=== PATIENT | female | born 1970 | race Asian ===

== ENCOUNTER → 2020-10-29 10:30 | Outpatient (CLI) | payer OTHER, SELFPAY ==
--- NOTE | ~2020-10-29 | XR_ITS ---
EXAMINATION: XR lumbar spine 2-3V DATE: 10/29/2020 10:56 INDICATION: Low back pain TECHNIQUE: Anteroposterior and lateral views of the lumbar spine, and cone-down lateral view of the l umbosacral junction were obtained. COMPARISON: None. FINDINGS: There is no fracture, dislocation, or subluxation. Mild loss of intervertebral disc space h eight is seen at L4-5 and L5-S1. The vertebral body heights are maintained. Small degenerative osteop hytes project from the anterior endplates of multiple vertebral bodies. There is mild facet osteoarth ritis of the lower lumbar spine. IMPRESSION: 1. Mild lumbar spondylosis without acute findings. Reviewed, dictated and finalized at location B.
== END ==
PROVIDERS: PCP Family Medicine; Visit Provider Nurse Practitioner Family
DX: M47.896 Other spondylosis, lumbar region (principal)
CPT/HCPCS: 72100

== ENCOUNTER → 2020-11-14 16:27 | Outpatient (CLI) | payer OTHER, SELFPAY ==
--- NOTE | ~2020-11-14 | MM_ITS ---
EXAMINATION: MM scrn calvin implant BI w bryant HISTORY: Screening mammogram TECHNIQUE: Craniocaudal and mediolateral oblique 3-D tomosynthesis images with implant displacement a nd synthetic 2-D images were generated. Craniocaudal and mediolateral oblique views of the breasts wi thout implant displacement were obtained using full field digital mammography. CAD analysis was submi tted and interpreted. COMPARISON: No prior mammogram is available for comparison at this institution. BREAST PARENCHYMAL COMPOSITION: The breasts are extremely dense, which lowers the sensitivity of mamm ography. FINDINGS: There is no evidence of suspicious mass, calcification, or architectural distortion to sugg est malignancy in either breast. There has been no suspicious interval change. IMPRESSION: 1. No mammographic evidence of malignancy. 2. Recommend routine screening mammography in one year. BI-RADS Category 1: Negative Reviewed, dictated and finalized at location A.
== END ==
PROVIDERS: Visit Provider Obstetrics & Gynecology
DX: Z12.31 Encounter for screening mammogram for malignant neoplasm of breast (principal)
CPT/HCPCS: 77063; 77067

== ENCOUNTER 2021-06-20 00:22 | Day surgery (SDC) | payer OTHER, SELFPAY ==
[2021-06-13 10:25] VITALS: BMI 23.6
[2021-06-20 07:35] VITALS: BP 122/88; PULSE 79; RESP 18; TEMP 36.4; O2SAT 100
[2021-06-20] MEDS: LACTATED RINGERS 1,000 ML 150 ML IV CONT (07:40)
--- NOTE | 2021-06-20 08:22 | P.PNAN_ITS ---
Anes - Initial Pre Proc Eval Procedure: Operation Date: 06/20/21 08:45 Proposed Procedures p Screening Colonoscopy - Jerad Scott MD Date/Time: 06/20/21 08:22 Surgeon: Jerad Scott MD Pre Op Diagnosis: neoplasm screening Patient Data Age: 51 Gender: F Height: 1.57 m Weight: 58.5 kg Last Vital Signs Temp 97.6 F 06/20/21 07:35 Pulse 79 06/20/21 07:35 Resp 18 06/20/21 07:35 BP 122/88 06/20/21 07:35 Pulse Ox 100 06/20/21 07:35 Allergies Allergy/AdvReac Type Severity Reaction Status Date / Time No Known Allergies Allergy Verified 06/20/21 07:34 Home Medications Medication Instructions Recorded Confirmed Type No Home Medications 03/12/20 06/13/21 History Patient hx anesthesia problems: none Family hx anesthesia problems: none Results Review: All pre-operative results and documents have been reviewed as part of the pre-operative evaluation. [facility] Past Medical History Medical History (Updated 04/09/21 @ 15:23 by Amna Guzman) Encounter for screening colonoscopy Surgical History Surgical History History of breast surgery History of section Family History Family History Father No problems noted. Mother Asthma Hypertension Social History Social History Smoking status: Never smoker Alcohol intake: current Drinks per week: 5 Alcohol use details: WEEK Substance use: never Substance use type: does not use Living arrangements: with family Spiritual care concerns: No Anes - Eval Final PreProcedure Day of Procedure 06/20/21 08:22 Patient weight: normal Heart: regular rate and rhythm Lungs: clear to auscultation Airway: Mallampati scale class II Neurological: alert and oriented Last oral intake: >/= 8 hours ASA classification: I Emergent: no Anesthetic plan: proceed Anesthesia type and monitoring: general GIVS and standard monitoring Results Review: All pre-operative results and documents have been reviewed as part of the pre-operative evaluation. Informed Consent: The patient's anesthetic plan and its attendant risks and benefits were discussed with the patient/family/POA. Questions were solicited and answers provided to the satisfaction of the patient/family/POA.
--- NOTE | 2021-06-20 08:31 | PM.HPGS ---
History of Present Illness History of Present Illness Consent: Risks, benefits, and alternatives have been discussed and questions answered. Patient agrees to proceed with procedure. Chief complaint: neoplasm screening Narrative: Jessica Saenz is a 51 year old female here for first screening colonoscopy Review of Systems Constitutional: Constitutional: Denies headache(s) and Denies weakness Eyes: Eyes: Denies blurry vision ENT: Reports Normal hearing present, Denies headache(s) and Denies neck pain Cardiovascular: Cardiovascular: Denies chest pain and Denies dyspnea Respiratory: Respiratory: Denies dyspnea Gastrointestinal: Gastrointestinal: Reports no additional gastrointestinal complaints Genitourinary: Genitourinary: Denies dysuria Musculoskeletal: Musculoskeletal: Denies neck pain Integumentary/Breasts: Skin/Breast: Denies dry skin Neurologic: Reports Normal hearing present, Denies headache(s) and Denies weakness Psychiatric: Psychiatric: Denies anxiety Endocrine: Endocrine: Denies change in body appearance Hematologic/Lymphatic: Hematologic/Lymphatic: Denies easy bleeding Allergic/Immunologic: Allergic/Immunologic: Denies urticaria PMFSH Past Medical History Medical History (Updated 04/09/21 @ 15:23 by Amna Guzman) Encounter for screening colonoscopy Surgical History Surgical History History of breast surgery History of section Family History Family History Father No problems noted. Mother Asthma Hypertension Social History Social History Smoking status: Never smoker Alcohol intake: current Drinks per week: 5 Alcohol use details: WEEK Substance use: never Substance use type: does not use Living arrangements: with family Spiritual care concerns: No Meds Home Medications and Allergies Home Medications Medication Instructions Recorded Confirmed Type No Home Medications 03/12/20 06/13/21 History Allergies Allergy/AdvReac Type Severity Reaction Status Date / Time No Known Allergies Allergy Verified 06/20/21 07:34 Vital Signs Vital Signs - 24 hr 06/20/21 07:35 Temperature 97.6 F Pulse Rate 79 Respiratory Rate 18 Blood Pressure 122/88 Pulse Oximetry 100 Exam Const: General: comfortable and no acute distress HENMT: General nose exam: Normal nares present Eyes: General: appearance normal, both eyes and all related structures Neck: Neck: no JVD Resp: Auscultation: clear to auscultation bilaterally Cardio: Rate: regular rate Rhythm: regular rhythm GI: Inspection: non-distended GI Palp: Yes Soft to palpation Skin: General skin exam: normal color Neuro: General: gait normal Speech: normal speech Extrem: General: normal to inspection Psych: Mental Status: mental status grossly normal Assessment and Plan Assessment and plan (1) Encounter for screening colonoscopy: Code(s): Z12.11 - Encounter for screening for malignant neoplasm of colon Status: Acute Assessment and Plan: colonoscopy
[2021-06-20 08:57] VITALS: BP 103/81; PULSE 80; RESP 17; O2SAT 97
[2021-06-20 09:07] VITALS: BP 108/80; PULSE 67; RESP 17; O2SAT 100
[2021-06-20 09:17] VITALS: BP 114/84; PULSE 61; RESP 18; O2SAT 100
== END 2021-06-20 09:30 | disposition home or self-care (01) ==
PROVIDERS: PCP Family Medicine; Visit Provider Internal Medicine Gastroenterology
PROC: 0DJD8ZZ Inspection of Lower Intestinal Tract, Via Natural or Artificial Opening Endoscopic (ICD-10-PCS; CPT 45378; principal; 2021-06-20 08:45)
DX: Z12.11 Encounter for screening for malignant neoplasm of colon (principal); K64.8 Other hemorrhoids
CPT/HCPCS: 45378; J2405; J7120

== ENCOUNTER → 2021-11-28 15:08 | Outpatient (CLI) | payer OTHER, SELFPAY ==
--- NOTE | ~2021-11-28 | XR_ITS ---
EXAMINATION: XR lumbar spine min 4V DATE: 11/28/2021 15:45 INDICATION: Chronic low back pain TECHNIQUE: Anteroposterior, lateral, and bilateral oblique views of the lumbar spine, and cone-down l ateral view of the lumbosacral junction were obtained. COMPARISON: 10/29/2020 FINDINGS: Bone alignment is normal. There is no fracture. There is mild loss of intervertebral disc s pace height and L5-S1. Small degenerative osteophytes project from the anterior endplates of multiple vertebral bodies. There is moderate facet osteoarthritis of the lower lumbar spine. IMPRESSION: 1. Mild lumbar spondylosis without acute findings or significant interval change. Reviewed, dictated and finalized at location A. IMPRESSION: 1. Mild lumbar spondylosis without acute findings or significant interval phillips iman
--- NOTE | ~2021-11-28 | MM_ITS ---
EXAMINATION: MM scrn calvin implant BI w bryant HISTORY: Screening mammogram TECHNIQUE: Craniocaudal and mediolateral oblique 3-D tomosynthesis images with implant displacement a nd synthetic 2-D images were generated. Craniocaudal and mediolateral oblique views of the breasts wi thout implant displacement were obtained using full field digital mammography. CAD analysis was submi tted and interpreted. COMPARISON: 11/14/2020 bilateral implant screening mammogram BREAST PARENCHYMAL COMPOSITION: The breasts are extremely dense, which lowers the sensitivity of mamm ography. FINDINGS: Status post bilateral augmentation mammoplasty. There is no evidence of suspicious mass, ca lcification, or architectural distortion to suggest malignancy in either breast. There has been no dailey spicious interval change. IMPRESSION: 1. No mammographic evidence of malignancy. 2. Recommend routine screening mammography in one year. BI-RADS Category 1: Negative Reviewed, dictated and finalized at location A.
== END ==
PROVIDERS: PCP Obstetrics & Gynecology; Visit Provider Obstetrics & Gynecology
DX: Z12.31 Encounter for screening mammogram for malignant neoplasm of breast (principal); M54.50 Low back pain, unspecified; M47.816 Spondylosis without myelopathy or radiculopathy, lumbar region
CPT/HCPCS: 72110; 77063; 77067

== ENCOUNTER → 2023-03-05 08:04 | Outpatient (CLI) | payer OTHER, SELFPAY ==
--- NOTE | ~2023-03-05 | MM_ITS ---
EXAMINATION: MM scrn calvin implant BI w bryant HISTORY: Screening mammogram TECHNIQUE: Craniocaudal and mediolateral oblique 3-D tomosynthesis images with implant displacement a nd synthetic 2-D images were generated. Craniocaudal and mediolateral oblique views of the breasts wi thout implant displacement were obtained using full field digital mammography. CAD analysis was submi tted and interpreted. COMPARISON: 11/28/2021, 11/14/2020 bilateral implant screening mammogram examinations BREAST PARENCHYMAL COMPOSITION: The breasts are extremely dense, which lowers the sensitivity of mamm ography. FINDINGS: Status post bilateral augmentation mammoplasty. There is no evidence of suspicious mass, ca lcification, or architectural distortion to suggest malignancy in either breast. There has been no dailey spicious interval change. IMPRESSION: 1. No mammographic evidence of malignancy. 2. Recommend routine screening mammography in one year. BI-RADS Category 1: Negative Reviewed, dictated and finalized at location A. [place] [employer]
== END ==
PROVIDERS: PCP Obstetrics & Gynecology; Visit Provider Obstetrics & Gynecology
DX: Z12.31 Encounter for screening mammogram for malignant neoplasm of breast (principal)
CPT/HCPCS: 77063; 77067

== ENCOUNTER 2023-06-07 18:05 | Emergency (ER) | payer OTHER, SELFPAY ==
[2023-06-07 18:27] VITALS: BP 140/90; PULSE 55; RESP 16; TEMP 36.5; O2SAT 99
--- NOTE | 2023-06-07 18:33 | ECG_ITS ---
Measurements Intervals [place] Rate: 56 P: 51 OR: 180 QRS: 11 QRSD: 92 T: 36 QT: 433 QTc: 421 Interpretive Statements SINUS BRADYCARDIA OTHERWISE UNREMARKABLE ELECTROCARDIOGRAM Electronically Signed On 06-07-2023 18:43:09 CLOUD SECURITY ARCHITECT by Larry Green M.D.
--- NOTE | 2023-06-07 18:45 | ED.CHESTPAIN ---
HPI - Chest Pain General Chief Complaint: Chest Pain Stated Complaint: Chest Pain;Arm Numb Time Seen by Provider: 06/07/23 18:20 Source: patient and RN notes reviewed Mode of arrival: ambulatory Limitations: no limitations History of Present Illness HPI narrative: Patient presents today complaining of right arm numbness and weakness, midsternal chest tightness, nausea. Symptoms began approximately 4 hours prior to arrival. She also reports right temporal headache that started at 10:00 a.m.. Denies shortness of breath, dizziness, lightheadedness, vision changes, vomiting. She currently rates her headache 09/19. She took an 81 mg aspirin just prior to arrival. Denies any cardiac or pulmonary history. Related Data Home Medications Medication Instructions Recorded Confirmed No Home Medications 03/12/20 06/07/23 Allergies Allergy/AdvReac Type Severity Reaction Status Date / Time No Known Allergies Allergy Verified 06/07/23 18:34 Review of Systems Review of Systems: CONSTITUTIONAL: Denies body aches, fever, chills, or sweats. EYES: Denies visual changes, redness, or discharge. ENT: Denies rhinorrhea, congestion, sore throat, or otalgia. CARDIOVASCULAR: Denies palpitations, or edema.+ chest tightness RESPIRATORY: Denies cough or dyspnea. GASTROINTESTINAL: Denies abdominal pain, vomiting, or diarrhea.+ nausea GENITOURINARY: Denies dysuria or hematuria. SKIN: Denies rash, itching, or wounds. MUSCULOSKELETAL: Denies back pain, joint pain, or myalgia. NEUROLOGIC: + headache, right arm numbness and weakness PSYCH: Denies depression or anxiety. [facility] Past Medical History Medical History BMI 23.0-23.9, adult BMI 24.0-24.9, adult Encounter for screening colonoscopy Surgical History Surgical History History of breast surgery History of section Family History Family History Father No problems noted. Mother Asthma Hypertension Sibling No problems noted. 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 Please see nursing chart for further information. There is no relevant family history pertinent to the presenting complaint Exam Narrative: GENERAL: Well-appearing, well-nourished, and in no acute distress. HEAD: Normocephalic, atraumatic. EYES: EOMI. PERRL. No redness or drainage. Conjunctivae normal. ENT: Mucous membranes pink and moist. NECK: Normal AROM. CHEST: No respiratory distress. Clear to auscultation. HEART: Regular rate and rhythm. No murmur appreciated. Normal peripheral pulses. MUSCULOSKELETAL: No bony tenderness. EXTREMITIES: Normal range of motion. No edema. Hand hand decorator equal and strong. Dorsiflexion and plantar flexion equal and strong against resistance. SKIN: Warm, dry, no rash. Capillary refill normal. Normal skin turgor. NEURO: No focal deficits noted.. Alert an
== END 2023-06-07 18:41 | disposition short-term general hospital (02) ==
PROVIDERS: Emergency Provider Nurse Practitioner; PCP Family Medicine
DX: R20.0 Anesthesia of skin (principal); R20.2 Paresthesia of skin; R07.89 Other chest pain; R51.9 Headache, unspecified; Z79.82 Long term (current) use of aspirin
CPT/HCPCS: 93005; 99213; G0463

== ENCOUNTER 2023-06-07 18:59 | Emergency (ER) | payer OTHER, SELFPAY ==
[2023-06-07] VITALS (8 sets, daily range): BP systolic 152–176; BP diastolic 83–99; PULSE 56–64; RESP 14–19; TEMP 36.4; O2SAT 95–100
--- NOTE | ~2023-06-07 | XR_ITS ---
EXAMINATION: XR chest 2V Exam Date/Time: 06/07/2023 19:30 PHARMACY MANAGER HISTORY: chest tightness, WITH NAUSEA, HEADACHE AND RIGHT ARM Comparison: None. RESULT: Lines, tubes, and devices: Bilateral breast implants. Lungs and pleura: Clear. Cardiomediastinal silhouette: Normal. Other: No acute osseous or upper abdominal finding. IMPRESSION: No acute cardiopulmonary process. Reviewed, dictated and finalized at location K. MACY MANAGER
--- NOTE | 2023-06-07 19:22 | ECG_ITS ---
Measurements Intervals [place] Rate: 56 P: 54 [place]: 185 QRS: 19 QRSD: 86 T: 32 QT: 447 QTc: 433 Interpretive Statements SINUS BRADYCARDIA NONSPECIFIC ST & T-WAVE ABNORMALITY COMPARED TO ECG 06/07/2023 18:20:31 T-WAVE ABNORMALITY NOW PRESENT Electronically Signed On 06-08-2023 12:25:16 SECURITY SOLUTIONS ARCHITECT by Latoya Canas M.D.
[2023-06-07 19:43] LABS: Basophils Percent Auto 0.7 % (0.2-1.2); Eosinophils Absolute Auto 0.1 K/mm3 (0-0.3); Eosinophils Percent Auto 1.7 % (0-4.4); Hematocrit 44.2 % (37.0-47.0); Hemoglobin 14.5 g/dL (12.0-15.0); Immature Granulocyte Absolute 0.01 K/mm3 (0.00-0.031); Immature Granulocyte Percent A 0.2 % (0-0.5); Lymphocytes Absolute Auto 1.33 K/mm3 (0.9-3.2); Lymphocytes Percent Auto 23.2 % (18.3-44.2); Mean Corpuscular HGB Conc 32.8 g/dl (32-36); Mean Corpuscular Hemoglobin 30.3 pg (26-34); Mean Corpuscular Volume 92.5 fl (80-100); Mean Platelet Volume 10.1 fl (7.4-10.4); Monocytes Absolute Auto 0.4 K/mm3 (0.1-0.6); Monocytes Percent Auto 6.4 % (2.6-8.5); Neutrophils Absolute Auto 3.9 K/mm3 (1.3-6.7); Neutrophils Percent Auto 67.8 % (45.5-73.1); Platelet Count Result 279 k/mm3 (150-375); Red Blood Count 4.78 M/mm3 (4.2-5.4); Red Cell Distribution Width 12.3 % (11.5-14.5); White Blood Count 5.7 K/mm3 (4.5-10.0)
[2023-06-07 19:54] LABS: INR 0.9; Prothrombin Time 12.6 Seconds (11.1-14.7)
[2023-06-07 19:55] LABS: Partial Thromboplastin Time 29.5 SECONDS (22.3-36.8)
[2023-06-07 19:56] LABS: Alanine Aminotransferase 31 U/L (6-35); Albumin Level 4.8 g/dL (3.5-5.1); Alkaline Phosphatase 94 U/L (38-126); Anion Gap 8 mmol/L (8-16); Aspartate Amino Transferase 33 U/L (14-36); Bilirubin,Total 1.3 mg/dL (0.2-1.3); Blood Urea Nitrogen 11 mg/dL (7-17); Calcium 9.2 mg/dL (8.4-10.2); Carbon Dioxide 28 mmol/L (22-30); Chloride 102 mmol/L (98-107); Estimated CRCL calculation 63 ml/min; Estimated Glomerular Filt Rate > 60; Glucose 105 mg/dL (65-110); Lipase 54 U/L (23-300); Potassium 3.4 mmol/L (3.4-5.0); Sodium 138 mmol/L (137-145)
[2023-06-07 20:08] LABS: Troponin I < 0.012 ng/mL (0.000-0.034)
--- NOTE | 2023-06-07 22:12 | ED.GENADULT ---
[facility] - General Adult General Chief complaint: Unspecified Stated complaint: R arm numbness, chest tightness, nausea Time Seen by Provider: 06/07/23 21:30 Source: patient Mode of arrival: ambulatory Limitations: no limitations History of Present Illness [facility] narrative: This is a 53-year-old female who presents to the ED with chief complaint of right arm paresthesias beginning around 2:00 p.m. today. 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 Reports she subsequently started some headache and chest tightness. Reports the symptoms have resolved but the tingling is still present. Denies lower extremity symptoms, vision changes, facial droop, speech problems, vision change, neck pain, fevers, chills, seizure, syncope, lightheadedness. Related Data Home Medications Medication Instructions Recorded Confirmed No Home Medications 03/12/20 06/07/23 Allergies Allergy/AdvReac Type Severity Reaction Status Date / Time No Known Allergies Allergy Verified 06/07/23 18:34 Review of Systems Review of Systems: All systems as dictated in [facility] Past Medical History Medical History BMI 23.0-23.9, adult BMI 24.0-24.9, adult Encounter for screening colonoscopy Surgical History Surgical History History of breast surgery History of section Family History Family History Father No problems noted. Mother Asthma Hypertension Sibling No problems noted. 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 HEAD: Normocephalic, atraumatic. EYES: PERRLA and EOMI. Visual krishna intact ENT: Nares clear, no rhinorrhea or epistaxis. Mucous membranes moist. Oropharynx without tonsillar hypertrophy exudate or other lesions. NECK: Supple. No adenopathy or masses. CHEST: No respiratory distress. Clear to auscultation. No wheezes rales or rhonchi HEART: Regular rate and rhythm. No murmur heard. Normal peripheral pulses. ABDOMEN: Soft, nontender, nondistended, normal active bowel sounds. MSK: Normal range of motion. No edema. SKIN: Warm, dry, no rash. NEURO: Alert and oriented x3. No focal deficits. Cranial nerves 2-12 intact. negative pronator drift. Normal finger-nose and heel-diallo. Ambulatory without difficulty. PSYCH: Normal mood and affect. Course Vital Signs Vital signs: Vital Signs Temperature 97.5 F L 06/07/23 19:17 Pulse Rate 62 06/07/23 19:17 Respiratory Rate 14 06/07/23 19:17 Blood Pressure 152/99 H 06/07/23 19:17 Pulse Oximetry 100 06/07/23 19:17 Oxygen Delivery Room Air 06/07/23 19:17 Temperature 97.5 F L 06/07/23 19:17 Pulse Rate 56 L 06/07/23 21:45 Respiratory Rate 18 06/07/23 21:45 Blood Pressure 176/83 H 06/07/23 21:10 Pulse Oximetry 98 06/07/23 21:45 Oxygen Delivery Room Air 06/07/23 19:17 Medical Decision Making [facility] Narrati
== END 2023-06-07 22:37 | disposition home or self-care (01) ==
PROVIDERS: Emergency Medicine; Emergency Provider Physician Assistant; PCP Family Medicine
DX: R20.2 Paresthesia of skin (principal)
CPT/HCPCS: 36415; 71046; 80053; 83690; 84484; 85025; 85610; 85730; 93005; 99284

== ENCOUNTER 2023-10-22 14:29 | Emergency (ER) | payer OTHER, SELFPAY ==
[2023-10-22 14:37] VITALS: BP 114/80; PULSE 70; RESP 16; TEMP 37.3; O2SAT 99
--- NOTE | 2023-10-22 14:43 | ED.EAR ---
HPI - Ear Problem General Chief complaint: Ear Stated complaint: Ear Pain Source: patient Mode of arrival: ambulatory Limitations: no limitations History of Present Illness HPI Narrative: 53-year-old female presented for complaint of left ear pain for about 2 weeks. Reports swallowing causes increased pain to the ear. Rates pain 10. Endorses chronic seasonal allergies, for which she does not take any medication. Denies ear drainage, tinnitus, dizziness, nausea, vomiting, fevers or chills. MD Complaint: ear pain Related Data Home Medications Medication Instructions Recorded Confirmed No Home Medications 03/12/20 10/22/23 Allergies Allergy/AdvReac Type Severity Reaction Status Date / Time No Known Allergies Allergy Verified 10/22/23 14:43 Review of Systems Review of Systems: CONSTITUTIONAL: Denies malaise, chills, or fever. EYES: Denies visual changes, redness, or discharge. ENT: Denies rhinorrhea, congestion, sinus pain, and sore throat. Reports ear pain CARDIOVASCULAR: Denies chest pain, palpitations, or edema. RESPIRATORY: Denies cough or dyspnea. GASTROINTESTINAL: Denies abdominal pain, nausea, vomiting, diarrhea SKIN: Denies rash or itching. MUSCULOSKELETAL: Denies myalgia. NEUROLOGIC: Denies headache. All systems reviewed & are unremarkable except as noted in HPI and below PMFSH Past Medical History Medical History BMI 23.0-23.9, adult BMI 24.0-24.9, adult Encounter for screening colonoscopy Surgical History Surgical History History of breast surgery History of section Family History Family History Father No problems noted. Mother Asthma Hypertension Sibling No problems noted. 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 There is no relevant family history pertinent to the presenting complaint Exam Narrative: GENERAL: Well-appearing EYES: PERRLA, conjunctivae clear ENT: Nares clear. Mucous membranes moist. TMs pearly perkins with normal light reflex bilaterally, scant clear effusion left; no tragal tenderness. Oropharynx not erythematous without lesions. Tonsils not enlarged and without exudate, no drooling, no hoarseness, no trismus, uvula midline. NECK: Supple. No lymphadenopathy CHEST: Clear to auscultation, breath sounds equal. HEART: Regular rate and rhythm. No murmur heard. SKIN: Warm, dry, no rash. NEURO: Alert and oriented x3. PSYCH: Normal mood and affect Course Course Emergency Course: Patient is aware of diagnosis, understands and agrees to treatment plan. Anticipatory guidance given. Patient agrees to follow-up as directed and is aware of reasons to seek care at the emergency department. Portions of this record may have been created with voice recognition software Level of Care: Express Care Visit Vital Signs Vital signs: Vital Signs Temperature 99.2 F 10/22/23 14:37 Pulse Rate 70 10/22/23 1
== END 2023-10-22 15:00 | disposition home or self-care (01) ==
PROVIDERS: Emergency Provider Nurse Practitioner Family; PCP Family Medicine
DX: H92.02 Otalgia, left ear (principal)
CPT/HCPCS: 99211; G0463

== ENCOUNTER → 2024-04-08 14:56 | Emergency (ER) | payer OTHER, SELFPAY | END | disposition left against medical advice (07) | PROVIDERS: Emergency Provider Nurse Practitioner; PCP Family Medicine | DX: Z53.21 Procedure and treatment not carried out due to patient leaving prior to being seen by health care provider (principal) | CPT/HCPCS: 99199 ==

== ENCOUNTER 2024-08-22 08:01 | Emergency (ER) | payer OTHER, SELFPAY ==
--- NOTE | ~2024-08-22 | XR_ITS ---
XR foot RT min 3V Ordering provider: Noah Connor APRN History: . fall Wednesday, pain and swelling right foot . Comparison: None. FINDINGS: BONES: No acute fracture or dislocation. JOINT SPACES: Narrowing of the proximal and distal interphalangeal joints.. No tarsal coalition. SOFT TISSUES: Normal. Calcaneal spur. IMPRESSION: No acute osseous abnormality of the right foot. Reviewed, dictated and finalized at location A.
--- NOTE | ~2024-08-22 | XR_ITS ---
XR ankle RT min 3V Ordering provider: Noah Connor APRN History: . fall Wednesday, pain and swelling right foot . Comparison: None. FINDINGS: BONES: No acute fracture or dislocation. JOINT SPACES: Normal. SOFT TISSUES: Normal. IMPRESSION: No acute osseous abnormality of the right ankle. Reviewed, dictated and finalized at location A.
[2024-08-22 08:11] VITALS: BP 136/82; PULSE 62; RESP 16; TEMP 37; O2SAT 100
--- NOTE | 2024-08-22 08:23 | ED_ITS ---
HPI - Extremity Injury (Lower) General Chief Complaint: Extremity Injury, Lower Stated Complaint: Injured Right Foot Time Seen by Provider: 08/22/24 08:15 Source: patient and RN notes reviewed Mode of arrival: ambulatory Limitations: no limitations History of Present Illness HPI Narrative: 54-year-old female presents Express Care complaining of a right foot/ ankle injury 3 days ago. Patient states she missed a step while walking down stairs and fell proximally down to more steps. When she landed on the next step she hyperextended her right ankle and fell pain to the back of her ankle after the injury. Patient reports having difficulty bearing weight on her right ankle and stated it was difficult for her to get up after she fell to the pain. Patient reports having swelling around her right ankle. Patient denies any numbness or tingling to her right foot. patient also has abrasions to her right knee and right elbow however she has no pain, swelling, or deformity to her right knee are elbow. Patient denies any significant past medical history. Patient has been using ice to help with the swelling to her right ankle. Related Data Home Medications ?Medication ?Instructions ?Recorded ?Confirmed ?Last Taken ?Type No Home Medications 03/12/20 10/22/23 Unknown History Allergies Allergy/AdvReac Type Severity Reaction Status Date / Time No Known Allergies Allergy Verified 10/22/23 14:43 Review of Systems Review of Systems: CONSTITUTIONAL: Denies fever, chills, or sweats. EYES: Denies visual changes, redness, or discharge. ENT: Denies rhinorrhea, congestion, sore throat, or otalgia. CARDIOVASCULAR: Denies chest pain, palpitations, or edema. RESPIRATORY: Denies cough or dyspnea. GASTROINTESTINAL: Denies abdominal pain, nausea, vomiting, or diarrhea. GENITOURINARY: Denies dysuria or hematuria. SKIN: Denies rash or itching. Positive for abrasions MUSCULOSKELETAL: Denies back pain, joint pain, or myalgia. Positive for right ankle injury. NEUROLOGIC: Denies headache, numbness, or weakness. PSYCHIATRIC: Denies anxiety or depression. All other systems reviewed are negative, except as documented in HPI. COUNT INCLUDES THE [facility] Past Medical History Medical History BMI 24.0-24.9, adult BMI 23.0-23.9, adult Encounter for screening colonoscopy Surgical History Surgical History History of section History of breast surgery Family History Family History Father No problems noted. Mother Asthma Hypertension Sibling No problems noted. 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 There is no relevant family history pertinent to the patient complaint. Exam Narrative: GENERAL: This is a well-nourished, well-developed adult, in no apparent distress. They are non ill-appearing, nontoxic appearing. HEAD: normocephalic, atraumatic. EYES: Sclera clear/white. Conjunctiva normal. Vision is grossly intact. Extraocular movements intact. Pupils PERRLA EARS: External ears normal, NOSE: External nose normal THROAT: Mucous membranes moist NECK: normal range of motion CARDIOVASCULAR: Regular rate and rhythm RESPIRATORY: Respiratory rate normal, respiratory effort nonlabored, no respiratory distress SKIN: right elbow: abrasion present to the extensor surface of right elbow. No Erythema, swelling, or drainage. Right knee: abrasions present to the anterior surface of the right knee. No erythema, swelling, or drainage. NEURO: awake, alert, and oriented to person, place and time. There were no obvious focal neurologic abnormalities. EXTREMITIES: Right ankle: swelling ecchymosis surrounding the lateral and medial ankle. Decreased movement during Kelly's test compared to the left ankle. Patient is able to dorsiflex and plantar flex the right ankle. No bony tenderness. Tenderness to palpation to the Achilles tendon. Right Achilles tendon partially palpable and soft, tender compared to left Achilles that is palpable, firm, and nontender. Right foot: no obvious deformity, swelling, bruising, injury to right foot. No bony tenderness. Pedal pulse 2 +palpable. Patient is able to wiggle her toes. Normal sensation. Neurovascular status is intact distal to injury. Right knee: abrasions present, no obvious injury, swelling, tenderness, or deformity, normal range of motion without tenderness. Right elbow: abrasion present, no obvious injury, swelling, tenderness, or deformity. Normal range of motion without tenderness BACK: Nontender without deformity. Course Course Emergency Course: Portions of this record may have been created with voice recognition software Level of Care: Express Care Visit Vital Signs Vital signs: Vital Signs Temperature 98.6 F 08/22/24 08:11 Pulse Rate 62 08/22/24 08:11 Respiratory Rate 16 08/22/24 08:11 Blood Pressure 136/82 08/22/24 08:11 Pulse Oximetry 100 08/22/24 08:11 Temperature 98.6 F 08/22/24 08:11 Pulse Rate 62 08/22/24 08:11 Respiratory Rate 16 08/22/24 08:11 Blood Pressure 136/82 08/22/24 08:11 Pulse Oximetry 100 08/22/24 08:11 Reviewed Procedures Orthopedic Splinting/Casting Injury #1: Splinting/Casting Date: 08/22/24 Splinting/Casting Time: 09:20 Side: right Lower Extremity Injury Location: ankle Lower Extremity Immobilizer: posterior splint Splint: customized in ED OCL: short leg Pre-Procedure Neuro Vascular Exam: normal Post-Procedure Neuro Vascular Exam: normal Other Orthopedic Equipment: crutches Additional Comments: Patient tolerated procedure well. Patient has her own crutches. Crutch education was reinforced with patient. MDM - Extremity Injury (Lower) MDM Narrative Medical decision making narrative: X-ray revealed no acute fracture findings. Patient has decreased movement on the right ankle during her Kelly's test compared to the her left ankle. Patient is able to dorsiflex and plantar flex her ankle. There is tenderness to palpation throughout the patient's right Achilles tendon. The right Achilles does not feel fully intact upon examination comparing to the left Achilles. There is suspicion the patient injured her Achilles tendon. Patient placed in a short-leg posterior and was given a referral to orthopedist. Discussed physical exam findings. Advised supportive measures and signs/symptoms to go to the ER. Pt is appropriate for outpt treatment and f/u. Differential Diagnosis Differential diagnosis: Likely ankle sprain and strain, ankle fracture and other (Achilles tendon injury) Imaging Data Radiologist's impression: ITS Impressions Ankle X-Ray 08/22/24 08:59 IMPRESSION: No acute osseous abnormality of the right ankle. Foot X-Ray 08/22/24 09:00 IMPRESSION: No acute osseous abnormality of the right foot. Critical Care Time Critical Care Time Critical Care Time: No Discharge Plan Discharge Clinical Impression: Achilles tendon injury Patient Disposition: Home Condition: Stable Instructions: Achilles Tendon Rupture (ED) Additional Instructions: Your x-ray was negative for any acute fractures or acute findings to your right foot and ankle. It is likely you have injured your Achilles from your fall. You have been placed in the splint to your right ankle. Please keep the splint dry and covered when you take a shower. Keep the splint on at all times. Do not bear weight on your right ankle. Use the crutches as directed. Please follow- up with orthopedist for further evaluation and management in 3-5 days. If you develop any worsening symptoms, numbness, tingling, or any other concerns please go to the ER immediately. Patient Language: Brazilian Prescriptions: No Action No Home Medications Follow-up/Referrals: Kendrick Michaels MD [Primary Care Provider] - Temo Gunn MD [Physician] - (Achilles injury) Time of Disposition: 09:20
== END 2024-08-22 09:33 | disposition home or self-care (01) ==
PROVIDERS: PCP Family Medicine
DX: S86.001A Unspecified injury of right Achilles tendon, initial encounter (principal); W10.9XXA Fall (on) (from) unspecified stairs and steps, initial encounter
CPT/HCPCS: 29515; 73610; 73630; 99213; G0463

== ENCOUNTER 2024-08-25 07:44 | Outpatient (CLI) | payer OTHER, SELFPAY ==
--- NOTE | ~2024-08-25 | MR_ITS ---
EXAMINATION: MR ankle RT wo con DATE: 08/28/2024 09:50 INDICATION: Right Achilles tendon strain TECHNIQUE: Magnetic resonance imaging (MRI) of the right ankle was performed without intravenous cont rast. Sequences included sagittal, coronal, and axial proton-density weighted fast spin echo without and with fat saturation. COMPARISON: Radiographs dated 08/22/2024 FINDINGS: Medial ankle ligaments: Deep and superficial deltoid ligaments as well as the spring ligament are normal. Lateral ankle ligaments: The anterior and posterior inferior tibiofibular ligaments are normal. The anterior talofibular, calc aneofibular and posterior talofibular ligaments are normal. Tendons: Moderate Achilles tendinosis. There is a complete tear of the Achilles tendon approximately 6 cm prox imal to the calcaneal insertion with 0.5 cm proximal retraction. The peroneus longus and brevis tendo ns are normal. The tibialis anterior and extensor hallucis longus and extensor digitorum longus tendo ns are normal. The tibialis posterior, flexor digitorum longus and flexor hallucis longus tendons are normal. Plantar fascia: Plantar aponeurosis is normal. Bones/other: Mild marrow edema in the inferior head of the talus underlying the anterior facet of the subtalar rebecca nt which could be related to overlying chondromalacia. Joint spaces appear relatively preserved throu ghout. Otherwise normal marrow signal with no fracture or pathologic marrow replacing process. Fluid: Small fluid collection likely hematoma at the site of the Achilles tendon tear. There is subcutaneous edema at the medial and lateral ankle. No joint effusions or other abnormal fluid collections. IMPRESSION: 1. Moderate Achilles tendinosis with complete Achilles tendon tear 6 cm proximal to its insertion. Reviewed, dictated and finalized at location A. IMPRESSION: 1. Moderate Achilles tendinosis with complete Achilles tendon tear 6 cm proxima l to its insertion.
== END 2024-08-25 07:45 | disposition home or self-care (01) ==
PROVIDERS: PCP Orthopaedic Surgery; Visit Provider Orthopaedic Surgery
DX: S86.011D Strain of right Achilles tendon, subsequent encounter (principal); X58.XXXD Exposure to other specified factors, subsequent encounter
CPT/HCPCS: 73721

== ENCOUNTER 2024-09-01 00:53 | Day surgery (SDC) | payer OTHER, SELFPAY ==
[2024-08-29 09:26] VITALS: BMI 24.7
--- NOTE | 2024-08-29 09:33 | PC.NURSE ---
Report to the Outpatient Waiting Room, entrance under the green pavilion located off [facility], at time _1000_ on date _[id number]_. Planned Procedure Time: _1200_.? Time changes happen often and if your time is changed the preop area will call you the afternoon before. - You and your visitor will be asked to self-screen and do not enter if you have any COVID symptoms. Please call surgeon if you need to reschedule. - A mask is optional within the hospital at this time. Patients may have clear liquids (water, carbonated beverages, clear teas, apple juice) until 3 hours prior to surgery with a maximum of 20 ounces. - No food from midnight until time of surgery and no smoking, or chewing tobacco (or any form of nicotine). No chewing gum, candy or mints. Take only the following medications with a SIP of water on the morning of surgery: ___None DO NOT STOP ANY OF YOUR OTHER PRESCRIPTION MEDICATIONS PRIOR TO SURGERY EXCEPT THE FOLLOWING Hold all vitamins and supplements for 3 days per anesthesiologist. Medications to discontinue per physician Date to take last dose Please no make-up, nail swedish, hairspray, perfume, deodorant, or body powder the day of surgery.? No jewelry (including any body piercings) or valuables the day of surgery, leave them at home.? Please take a shower or bath the night before, or the morning of, surgery with an antibacterial soap.? Wear comfortable, loose fitting clothing.? - Jewelry must be removed prior to entering the operating room.? Rings and piercings that are not removed may be cut off. - The hospital will not accept responsibility for valuables.? - Please leave all valuables, including medications, at home the day of surgery. If you are going home after surgery, a licensed local city driver must drive you home.? - NO public transportation without another adult if you receive anesthesia. - We recommend that an adult stay with you for 24 hours following discharge. - We also recommend that you do not drive, make important decision, drink alcoholic beverages, or take any drugs that were not prescribed by your health care provider for at least 24 hours after your discharge time. Follow any additional instructions given to you from your surgeon. Telephone instructions given to ___Jessica__and asked if any additional questions and then verbalized understanding. Patient advised to call surgeon office or pre surgery nurse liaison [phone] if any additional questions.
[2024-09-01] VITALS (10 sets, daily range): BP systolic 91–125; BP diastolic 58–85; PULSE 50–69; RESP 14–20; TEMP 36.2–36.9; O2SAT 94–100; BMI 24.5
--- OUTSIDE RECORDS SUMMARY | 2024-09-01 00:59 | XMS_ITS | Clinical Summary ---
Author Organization [facility] C Address [address] [place] [address] Care Team Providers Care Clay Preparation Supervisor Name Role Phone Holly Conner NP Primary Care Provider [phone] Allergies No known active allergies Medications No known medications Active Problems Problem Noted Date Diagnosed Date Well woman exam 12/20/2023 Overview (12/20/2023): Lab: Pap:h/o abnl pap, last was normal Labs with pcp Gia:02/2022 Colonoscopy:2021 BMD: Gardasil:up to 45 Assessment & Plan (12/20/2023 3:54 PM CDT): Pap done. RTO 12m. I will send the results to the portal. If she has not heard in a week, to call the office. Immunizations Immunization Administration Dates Next Due Influenza, Unspecified 05/17/2023(Deferr ed: Patient Refused),04/13/2022(Deferred: Patient Refused),01/11/2022(Deferred: Patient Refused) Surgical History Surgery Date Site/Laterality Comments BREAST SURGERY Bilateral 1991, implants SECTION Medical History Medical History Date Comments Abnormal Pap smear of cervix Family History Medical History Relation Name Comments No Known Problems Brother No Known Problems Father Ovarian cancer Maternal cousin No Known Problems Mother No Known Problems Sister Cancer Neg Hx no colon, breas t cancer cmt 12/20/23 Relation Name Status Comments Brother Alive Father Alive Maternal cousin Other her gm and t he pts gf are siblings. Mother Alive Sister Alive Social History Tobacco Use Types Packs/Day Years Used Date Smoking Tobacco: Never Smokeless Tobacco: Never Tobacco Cessation:Counseling Given: Not Answered Humiliation, Afraid, Rape, and Kick questionnair e Answer Date Recorded Within the last year, have y ou been afraid of your partner or ex-partner? No 12/20/2023 Within the last year, have y ou been humiliated or emotionally abused in other ways by your partner or ex-partner? No Within the last year, have y ou been kicked, hit, slapped, or otherwise physically hurt by your partner or ex-partner? No 12/20/2023 Within the last year, have y ou been raped or forced to have any kind of sexual activity by your partner or ex-partner? No 12/20/2023 AUDIT-C Answer Date Recorded Q1: How often do you have a drink containing alc ohol? 2-3 times a week 12/20/2023 Q2: How many drinks containi ng alcohol do you have on a typical day when you are drinking? 1 or 2 12/20/2023 Q3: How often do you have si x or more drinks on one occasion? 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 Gender Identity Not on file Sexual Orientation Not on file Obstetrics History Para Term AB IAB SAB Ectopic Multiple Livin g Live Births 4 3 1 1 3 Date Outcome GA Total Labor Labor/2nd/3rd Weight Sex Type Anes PTL Felicia A1 A5 Name Clin Para Para Para IAB Last Filed Vital Signs Vital Sign Reading Time Taken Comments Blood Pressure 122/80 12/20/2023 3:24 PM CDT Pulse 74 08/27/2023 8:15 AM CDT Temperature 36.8 C (98.2 F) 08/27/2023 8:15 AM CDT Respiratory Rate 14 05/17/2023 8:12 AM YIELD ENGINEER Oxygen Saturation 97% 08/27/2023 8:15 AM CDT Inhaled Oxygen Concentration - - Weight 61.9 kg (136 lb 6.4 oz) 12/20/2023 3:24 P M CDT Height 157.5 cm (5' 2 ) 12/20/2023 3:24 PM CDT Body Mass Index 24.95 12/20/2023 3:24 PM CDT Plan of Treatment Health Maintenance Due Date Last Done Comments Breast Cancer Screening-Mammogram 1969 Hepatitis C Screening 1969 DTaP/Tdap/Td Vaccine (1 - Tdap) 1980 Hepatitis B Screening 1987 Zoster Vaccine (1 of 2) 2019 Cervical Cancer Screening 09/02/2022 09/02/2021 Covid-19 Vaccine (3 - 2023-2 5 season) 2023 01/15/2021, 12/25/2020 Influenza Vaccine (Season Ended) 2024 Depression Screening 12/19/2024 12/20/2023, 08/27/2023, 05/17/2023 Regular Well Visit/Exam 18-64 12/19/2024, 05/17/2023 Colon Cancer Screening-Colonoscopy 06/21/2031 06/20/2021 Pneumococcal vaccine <65 Aged Out No longer eligible based on patient's age to complete this topic Procedures Procedure Name Priority Date/Time Associated Diagnosis Comments PAP SMEAR WITH HPV Routine 09/02/2021 COLONOSCOPY Routine 06/20/2021 from Last 3 Months or Most Recently Relevant to Health Maintenance Results * PAP SMEAR WITH HPV (09/02/2021) Scribed Pap Smear w/HPV Normal us Historical Provider MD HEALTH MAINTENANCE Final Result * COLONOSCOPY (06/20/2021) us Historical Provider HEALTH MAINTENANCE Final Result from Last 3 Months or Most Recently Relevant to Health Maintenance Insurance [employer]ET[employer] SIG [id number] Care Teams Clay Preparation Supervisor Relationship Specialty Start Date End Date Holly Conner NP [address] [facility] [address] [place] [address] PCP - General Family Medicine 05/17/23
--- OUTSIDE RECORDS SUMMARY | 2024-09-01 00:59 | XMS_ITS | Referral Summary ---
[facility] Organization 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 Gender Identity Not on file Sexual Orientation Not on file Last Filed Vital Signs Vital Sign Reading Time Taken Comments Blood Pressure 122/80 12/20/2023 3:24 PM CDT Pulse 74 08/27/2023 8:15 AM CDT Temperature 36.8 C (98.2 F) 08/27/2023 8:15 AM CDT Respiratory Rate 14 05/17/2023 8:12 AM CHRISTIAN SCIENCE HEALER Oxygen Saturation 97% 08/27/2023 8:15 AM CDT Inhaled Oxygen Concentration - - Weight 61.9 kg (136 lb 6.4 oz) 12/20/2023 3:24 P M CDT Height 157.5 cm (5' 2 ) 12/20/2023 3:24 PM CDT Body Mass Index 24.95 12/20/2023 3:24 PM CDT Plan of Treatment Not on file Procedures Procedure Name Priority Date/Time Associated Diagnosis Comments HM PAP SMEAR WITH HPV Routine 09/02/2021 HM COLONOSCOPY Routine 06/20/2021 from Last 3 Months or Most Recently Relevant to Health Maintenance Results * HM PAP SMEAR WITH HPV (09/02/2021) Scribed Pap Smear w/HPV Normal us Historical Provider HEALTH MAINTENANCE Final Result * HM COLONOSCOPY (06/20/2021) us Historical Provider HEALTH MAINTENANCE Final Result from Last 3 Months or Most Recently Relevant to Health Maintenance Insurance AET[employer] SIG [id number] Care Teams Wire Rope Fabrication Supervisor Relationship Specialty Start Date End Date Holly Conner NP [address] [place] [address] PCP - General Family Medicine 05/17/23
--- NOTE | 2024-09-01 07:13 | WPDHPUPDATE1 ---
History and Physical Update Update Date/Time: 09/01/24 07:13 History and Physical has been reviewed, including an updated exam of the patient. There are NO changes in the patient's condition. Risks, benefits, and alternatives have been discussed and questions answered. Patient agrees to proceed with procedure.
[2024-09-01] MEDS: LACTATED RINGERS 1,000 ML 30 ML IV CONT ×2 (10:35→15:25)
--- NOTE | 2024-09-01 12:30 | WPDANESEPPF ---
Anes - Initial Pre Proc Eval Procedure: Operation Date: 09/01/24 12:00 Proposed Procedures p Open Achilles Tendon Repair Right Leg - Jacoby Hdez Jr., DPM Date/Time: 09/01/24 12:30 Surgeon: Jacoby Hdez Jr., DPM Pre Op Diagnosis: Achilles Tendon Rupture, Right Patient Data Age: 54 Gender: F Height: 1.57 m Weight: 61.4 kg Allergies Allergy/AdvReac Type Severity Reaction Status Date / Time No Known Allergies Allergy Verified 09/01/24 11:25 Home Medications ?Medication ?Instructions ?Recorded ?Confirmed ?Type No Home Medications 03/12/20 08/29/24 History Patient hx anesthesia problems: none Family hx anesthesia problems: none Results Review: All pre-operative results and documents have been reviewed as part of the pre-operative evaluation. [facility] Past Medical History Medical History BMI 24.0-24.9, adult BMI 23.0-23.9, adult Encounter for screening colonoscopy Surgical History Surgical History History of section History of breast surgery Family History Family History Father No problems noted. Mother Asthma Hypertension Sibling No problems noted. 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 Informed Consent: The patient's anesthetic plan and its attendant risks and benefits were discussed with the patient/family/POA. Questions were solicited and answers provided to the satisfaction of the patient/family/POA.
[2024-09-01] MEDS: ceFAZolin 2 GM/D5W 50 ML 2 GM/50 ML BAG IVPB (12:40)
[2024-09-01] MEDS: LIDOCAINE 2% LOCAL INJ 20 ML VIAL 10 ML INFILTRATE (13:15)
[2024-09-01] MEDS: BUPivacaine HCL 0.5% 10 ML AMP INFILTRATE (13:15)
--- NOTE | 2024-09-01 14:12 | P.OP_ITS ---
Procedure Note - Detailed Date of Procedure 09/01/24 Pre-op Diagnosis Achilles Tendon Rupture, Right leg Post-op Diagnosis Same Procedure Performed Open Achiles tendon repair right leg Surgeon Jacoby Hdez Jr., DPM Anesthesia MAC and Local Indications Pain and weakness. MRI confirmed full rupture of the Achilles Tendon. Description of Procedure Under mild sedation, the patient was brought to the operating room, placed on the operating table in the Prone position. A pneumatic thigh tourniquet was placed about the patient's right thigh. Following general anesthesia, I performed a common peroneal nerve block The foot was scrubbed, prepped, and draped in the usual aseptic manner. An Esmarch bandage was then used to examine the patient's foot and leg and the pneumatic thigh tourniquet was then inflated at 300mmHg. Surgery began in the following manner. Attention was noted the affected distal lower leg posteriorly where a palpable gap to the Achilles tendon was noted above the insertion. I made a 20c incision from the posteirir heel extending proximally. I used sharp and blunt dissection to visualize the paratenon and Achilles tendon. All bleeders were ligated and cauterized as necessary. I dissected the paretenon from the Achilles tendon r evealing the Achilles tendon rupture. No significant had taken place. I used 3.0 Vicryl to reapproximate the Achilles tendon rupture with [place] suture fashion technique along the medial and lateral aspect. Next, I used a modified Gift Box technique with Arthrex #2 Fiberwire along both the medial and lateral aspects of the tendon in between Vicryl stitching. I tied the suture ends with two handed surgeon hand knots proximally and distally. Good approximation of the Achilles was noted and excellent tension to the foot was also noted. I reapproximated the paratenon with 3.0 Vicryl and the subcutaneous structures with 4.0 Vicryl .Next, the skin was reapproximated with 4.0 Monocryl in running interlocking suture fashion technique. Upon completion of the procedure, the incision was dressed with Adaptic, 4 x 4's, Kerlix, and Coban. The pneumatic thigh tourniquet was then deflated and a prompt hyperemic response noted to all digits of the foot. I applied a posterior splint with the foot held in gravity equinus. The patient did very well with the procedure and the anesthesia. The patient was transferred to the recovery room with vital signs stable and vascular status intact to all toes of the affected foot. Following a period of postoperative monitoring, the patient will be discharged home on the following written and oral postoperative instructions: 1. Keep the dressing clean, dry, and intact. Use a cast protector bag with showers. 2. The patientThe patient will be strictly non weight bearing postoperatively. 3. The patient should be on bedrest with bathroom privileges and elevate the affected foot when at rest. 4. The patient to contact Dr. Hdez for all postop care and if any problems arise. 5. The patient will take Percocet 5/325 to be taken every 4 to 6 hours post operatively as needed for severe pain. Implants #2 Arthrex Fiberwire Estimated Blood Loss 1 Drains No Packing No Pathology None sent Complications No immediate complications Condition Stable Disposition Same day
[2024-09-01] MEDS: fentaNYL CITRATE INJ (*CRX) 100 MCG/2 ML VIAL 25 MCG IV PUSH (15:02)
[2024-09-01] MEDS: ONDANSETRON INJ 4 MG/2 ML VIAL IV PUSH (15:24)
[2024-09-01] MEDS: oxyCODONE HCL (*CRX) 5 MG TAB IR PO (15:40)
== END 2024-09-01 16:10 | disposition home or self-care (01) ==
PROVIDERS: PCP Family Medicine; Visit Provider Podiatrist Foot & Ankle Surgery
PROC: (CPT 27650; principal; 2024-09-01 12:00)
DX: S86.011A Strain of right Achilles tendon, initial encounter (principal); W10.9XXA Fall (on) (from) unspecified stairs and steps, initial encounter
CPT/HCPCS: 27650; A9270; J0690; J1100; J2003; J2250; J2405; J2704; J3010; J7120

== ENCOUNTER 2025-01-09 12:28 | Outpatient (CLI) | payer OTHER, SELFPAY ==
--- NOTE | ~2025-01-09 | MM_ITS ---
EXAMINATION: MM scrn calvin implant BI w bryant HISTORY: Screening mammogram TECHNIQUE: Craniocaudal and mediolateral oblique 3-D tomosynthesis images with implant displacement and synthetic 2-D images were generated. Craniocaudal and mediolateral oblique views of the breasts without implant displacement were obtained using full field digital mammography. CAD analysis was submitted and interpreted. COMPARISON: Comparison to multiple prior studies sequentially, with oldest reviewed study dated 11/14/2020. BREAST PARENCHYMAL COMPOSITION: Dense: The breasts are heterogeneously dense, which may obscure small masses FINDINGS: There is no evidence of suspicious mass, calcification, or architectural distortion to suggest malignancy in either breast. There has been no suspicious interval change. IMPRESSION: 1. No mammographic evidence of malignancy. 2. Recommend routine screening mammography in one year. BI-RADS Category 1: Negative Reviewed, dictated and finalized at location B.
== END 2025-01-09 12:29 | disposition home or self-care (01) ==
LOC: MICIMG 12:30
PROVIDERS: PCP Obstetrics & Gynecology; Visit Provider Obstetrics & Gynecology
DX: Z12.31 Encounter for screening mammogram for malignant neoplasm of breast (principal)
CPT/HCPCS: 77063; 77067